=== PATIENT | female | born 1960 | race Two or more races ===

== ENCOUNTER 2021-02-04 21:56 | Inpatient (IN) | payer MEDICAID, OTHER ==
[~2021-02-04] VITALS: Ht 152.4 cm; Wt 103.9 kg
[2021-02-04] MEDS ORDERED: LORazepam 2MG/ML-1ML VIAL IV ONE (22:15)
[2021-02-04] MEDS ORDERED: NIFEdipine 10 MG CAP PO ONE (22:15)
[2021-02-04 23:22] LABS: Basophils # (auto) 0 10 ^3/uL (0-0.2); Basophils % (auto) 0.8 % (0.0-2.0); Eosinophils # (auto) 0.2 10 ^3/uL (0-0.8); Eosinophils % (auto) 2.7 % (0.0-7.0); Hematocrit 40.5 % (36.0-46.0); Hemoglobin 13.1 g/dL (12.2-16.2); Lymphocytes # (auto) 1.8 10 ^3/uL (0.4-5.4); Lymphocytes % (auto) 31.5 % (10.0-50.0); Mean Corpuscular Hemoglobin 27.7 pg (28.0-32.0); Mean Corpuscular Hgb Conc. 32.3 g/dL (32.0-36.0); Mean Corpuscular Volume 85.8 fL (80.0-100.0); Monocytes # (auto) 0.4 10 ^3/uL (0-1.3); Monocytes % (auto) 6.9 % (0.0-12.0); Neutrophils # (auto) 3.3 10 ^3/uL (1.6-8.6); Neutrophils % (auto) 58.1 % (37.0-80.0); Red Blood Cells 4.72 10^6/uL (4.0-5.20); Red Cell Distribution Width 14.4 % (11.8-14.3); White Blood Cell 5.8 10^3/uL (4.4-10.8)
[2021-02-04 23:22] LABS: Urine Bacteria NONE SEEN /hpf (None Seen); Urine Blood Negative /uL (Negative); Urine Specific Gravity 1.017 (1.001-1.035); Urine WBC 1 /hpf (0 - 5)
[2021-02-04 23:40] LABS: INR 0.98 (0.9-1.15); Partial Thromboplastin Time 28.6 sec (23.6-33.0)
[2021-02-04 23:42] LABS: Albumin 3.4 g/dL (3.4-5.0); Anion Gap 3 (5-15); Blood Urea Nitrogen 19 mg/dL (7-18); Calcium 8.8 mg/dL (8.5-10.1); Carbon Dioxide 27 mmol/L (21-32); Chloride 110 mmol/L (98-107); Glucose 202 mg/dL (74-106); Magnesium 2.5 mg/dL (1.6-2.6); Potassium 3.6 mmol/L (3.5-5.1); Sodium 140 mmol/L (136-145)
[2021-02-04 23:47] LABS: Alanine Aminotransferase 35 U/L (13-56); Alkaline Phosphatase 86 U/L (45-117); Aspartate Aminotransferase 16 U/L (15-37); BUN/Creatinine Ratio 26.4; Bilirubin, Total 0.2 mg/dL (0.2-1.0); Blood Alcohol < 3.0 mg/dL (0-5); GFR African American 107 mL/min; GFR Non-African American 88 mL/min; Total Protein 7.2 g/dL (6.4-8.2)
[2021-02-05] MEDS ORDERED: ATORVASTATIN 20 MG TAB PO ONE (03:45)
[2021-02-05] MEDS ORDERED: ASPirin-EC 325mg tab PO ONE (03:45)
[2021-02-05] MEDS ORDERED: DEXTROSE (50%) 50ML SYRG IV PRN (04:00)
[2021-02-05] MEDS ORDERED: ONDANSETRON HCL 4 MG/2 ML VIAL IV PRN (04:00)
[2021-02-05] MEDS: ACCU-CHEK COMFORT CURVE STRIP VI SCH ×4 (07:27→22:00)
[2021-02-05] MEDS: InsuLIN REG 1unit/0.01ml Soln (100units/ml) SC SCH ×4 (07:33→22:00)
[2021-02-05] MEDS: ACETAMINOPHEN 325 MG TAB PO PRN (08:37)
[2021-02-05] MEDS: ASPirin 81 mg TAB PO SCH (10:25)
[2021-02-05] MEDS: PANTOPRAZOLE 40 MG TAB PO SCH (10:26)
[2021-02-05] MEDS: amLODIPine BESYLATE 5 MG TAB PO SCH (10:26)
[2021-02-05] MEDS: ENOXAPARIN SOD 40 MG/0.4 ML SYRINGE SC SCH (10:27)
[2021-02-05] MEDS ORDERED: BENA10TA14 PO (10:41)
[2021-02-05] MEDS ORDERED: METF-372 PO (10:41)
[2021-02-05] MEDS ORDERED: INS7030I SC ×2 (10:41)
[2021-02-05] MEDS ORDERED: ASPI1TAB20 PO (10:41)
[2021-02-05 11:00] VITALS: BP 137/74
[2021-02-05 12:17] LABS: Cholesterol 164 mg/dL (< 200); HDL Cholesterol 49 mg/dL (40-59); LDL Cholesterol 103 mg/dL (< 100); Triglycerides 84 mg/dL (< 150)
[2021-02-05 13:03] VITALS: BP 137/74
[2021-02-05] MEDS: HYDROcodone-ACET 5/325MG TAB PO PRN ×2 (15:40→21:44)
[2021-02-05 17:03] VITALS: BP 144/79
[2021-02-05 20:00] VITALS: BP 104/45
[2021-02-05 21:41] VITALS: BP 100/73
[2021-02-05] MEDS: ATORVASTATIN 20 MG TAB PO SCH (21:44)
[2021-02-06 05:00] VITALS: BP 143/71
[2021-02-06 06:07] LABS: Basophils # (auto) 0 10 ^3/uL (0-0.2); Basophils % (auto) 0.8 % (0.0-2.0); Eosinophils # (auto) 0.2 10 ^3/uL (0-0.8); Eosinophils % (auto) 3.2 % (0.0-7.0); Hematocrit 38.7 % (36.0-46.0); Lymphocytes # (auto) 1.9 10 ^3/uL (0.4-5.4); Lymphocytes % (auto) 33.6 % (10.0-50.0); Mean Corpuscular Hemoglobin 28.8 pg (28.0-32.0); Mean Corpuscular Hgb Conc. 33.7 g/dL (32.0-36.0); Mean Corpuscular Volume 85.6 fL (80.0-100.0); Monocytes # (auto) 0.4 10 ^3/uL (0-1.3); Monocytes % (auto) 6.5 % (0.0-12.0); Neutrophils # (auto) 3.2 10 ^3/uL (1.6-8.6); Neutrophils % (auto) 55.9 % (37.0-80.0); Nucleated Red Blood Cells % 0.1 %; Red Blood Cells 4.51 10^6/uL (4.0-5.20); Red Cell Distribution Width 14.5 % (11.8-14.3); White Blood Cell 5.7 10^3/uL (4.4-10.8)
[2021-02-06 06:20] LABS: Calcium 8.6 mg/dL (8.5-10.1); Potassium 3.7 mmol/L (3.5-5.1)
[2021-02-06 06:22] LABS: BUN/Creatinine Ratio 23.2
[2021-02-06] MEDS: InsuLIN REG 1unit/0.01ml Soln (100units/ml) SC SCH ×4 (07:00→22:16)
[2021-02-06] MEDS: ACCU-CHEK COMFORT CURVE STRIP VI SCH ×4 (07:11→22:17)
[2021-02-06 08:15] VITALS: BP 141/59
[2021-02-06 09:06] VITALS: BP 141/59
[2021-02-06] MEDS: ASPirin 81 mg TAB PO SCH (10:07)
[2021-02-06] MEDS: amLODIPine BESYLATE 5 MG TAB PO SCH (10:07)
[2021-02-06] MEDS: PANTOPRAZOLE 40 MG TAB PO SCH (10:07)
[2021-02-06] MEDS: HYDROcodone-ACET 5/325MG TAB PO PRN (10:09)
[2021-02-06] MEDS: ENOXAPARIN SOD 40 MG/0.4 ML SYRINGE SC SCH (10:09)
[2021-02-06] MEDS: CLINDAMYCIN 300MG IV 50 ML IV SCH ×3 (11:24→22:14)
[2021-02-06] MEDS: ACETAMINOPHEN 325 MG TAB PO PRN (13:24)
[2021-02-06 13:28] VITALS: BP 151/72
[2021-02-06 17:00] VITALS: BP 152/75
[2021-02-06 22:00] VITALS: BP 105/54
[2021-02-06] MEDS: ATORVASTATIN 20 MG TAB PO SCH (22:13)
[2021-02-07] MEDS: TEMAZEPAM 15 MG CAP PO PRN (02:00)
[2021-02-07 05:00] VITALS: BP 147/66
[2021-02-07] MEDS: CLINDAMYCIN 300MG IV 50 ML IV SCH ×3 (06:01→22:27)
[2021-02-07] MEDS: ACCU-CHEK COMFORT CURVE STRIP VI SCH ×4 (06:27→22:27)
[2021-02-07] MEDS: InsuLIN REG 1unit/0.01ml Soln (100units/ml) SC SCH ×4 (06:27→22:29)
[2021-02-07] MEDS: PANTOPRAZOLE 40 MG TAB PO SCH (08:55)
[2021-02-07] MEDS: ENOXAPARIN SOD 40 MG/0.4 ML SYRINGE SC SCH (08:55)
[2021-02-07] MEDS: ASPirin 81 mg TAB PO SCH (08:55)
[2021-02-07] MEDS: amLODIPine BESYLATE 5 MG TAB PO SCH (08:55)
[2021-02-07] MEDS: ACETAMINOPHEN 325 MG TAB PO PRN (08:56)
[2021-02-07 09:00] VITALS: BP_SYST 110; BP_SYST 160; BP_DIAS 80
[2021-02-07] MEDS: cloNIDine HCL 0.1 MG TAB PO PRN (12:04)
[2021-02-07 16:49] VITALS: BP 130/67
[2021-02-07] MEDS: HYDROcodone-ACET 5/325MG TAB PO PRN (17:21)
[2021-02-07 22:00] VITALS: BP 157/70
[2021-02-07] MEDS: ATORVASTATIN 20 MG TAB PO SCH (22:26)
[2021-02-08] MEDS: TEMAZEPAM 15 MG CAP PO PRN (01:23)
[2021-02-08 05:00] VITALS: BP 135/79
[2021-02-08] MEDS: CLINDAMYCIN 300MG IV 50 ML IV SCH ×2 (06:01→14:00)
[2021-02-08] MEDS: ACCU-CHEK COMFORT CURVE STRIP VI SCH ×2 (06:26→12:03)
[2021-02-08] MEDS: InsuLIN REG 1unit/0.01ml Soln (100units/ml) SC SCH ×2 (06:31→12:06)
[2021-02-08] MEDS: amLODIPine BESYLATE 5 MG TAB PO SCH (10:38)
[2021-02-08] MEDS: ASPirin 81 mg TAB PO SCH (10:38)
[2021-02-08] MEDS: cloNIDine HCL 0.1 MG TAB PO PRN (10:39)
[2021-02-08] MEDS: PANTOPRAZOLE 40 MG TAB PO SCH (10:39)
[2021-02-08] MEDS: ENOXAPARIN SOD 40 MG/0.4 ML SYRINGE SC SCH (10:39)
[2021-02-08 12:46] VITALS: BP 139/70
[2021-02-08] MEDS: ACETAMINOPHEN 325 MG TAB PO PRN (13:01)
== END 2021-02-08 13:55 | disposition home or self-care (01) | DRG 47 ==
LOC: EDBD 21:56 → ER 22:00 → OVERFLOW 02-05 03:48 → WEST WING 02-05 08:15
PROVIDERS: ADMIT Nurse Practitioner; ATTEND Family Medicine
DX: G45.9 Transient cerebral ischemic attack, unspecified (principal); I63.9 Cerebral infarction, unspecified; L03.116 Cellulitis of left lower limb; E11.9 Type 2 diabetes mellitus without complications; I10 Essential (primary) hypertension; E66.01 Morbid (severe) obesity due to excess calories; Z20.822 Contact with and (suspected) exposure to COVID-19; E78.5 Hyperlipidemia, unspecified; F17.200 Nicotine dependence, unspecified, uncomplicated; Z79.82 Long term (current) use of aspirin; Z86.73 Personal history of transient ischemic attack (TIA), and cerebral infarction without residual deficits; Z80.1 Family history of malignant neoplasm of trachea, bronchus and lung; Z82.3 Family history of stroke; Z82.49 Family history of ischemic heart disease and other diseases of the circulatory system; Z83.3 Family history of diabetes mellitus; Z68.41 Body mass index [BMI] 40.0-44.9, adult
CPT/HCPCS: 36415; 70450; 70551; 71045; 73700; 80048; 80053; 80061; 80320; 81001; 82962; 83735; 84484; 85025; 85610; 85730; 87426; 93005; 93306; 93886; 96374; G0378; J1815; J3490

== ENCOUNTER 2021-02-17 14:38 | Emergency (ER) | payer MEDICAID ==
[~2021-02-17] VITALS: Ht 149.9 cm; Wt 106.6 kg
[~2021-02-17 14:38] MED LIST: ASPI1TAB20 PO; BENA10TA14 PO; INS7030I SC; METF-372 PO
[2021-02-17 16:00] LABS: Basophils # (auto) 0 10 ^3/uL (0-0.2); Basophils % (auto) 0.7 % (0.0-2.0); Eosinophils # (auto) 0.2 10 ^3/uL (0-0.8); Eosinophils % (auto) 2.9 % (0.0-7.0); Hematocrit 39.3 % (36.0-46.0); Hemoglobin 13.2 g/dL (12.2-16.2); Lymphocytes # (auto) 1.8 10 ^3/uL (0.4-5.4); Lymphocytes % (auto) 27.6 % (10.0-50.0); Mean Corpuscular Hemoglobin 28.3 pg (28.0-32.0); Mean Corpuscular Hgb Conc. 33.4 g/dL (32.0-36.0); Mean Corpuscular Volume 84.6 fL (80.0-100.0); Monocytes # (auto) 0.4 10 ^3/uL (0-1.3); Monocytes % (auto) 6.6 % (0.0-12.0); Neutrophils % (auto) 62.2 % (37.0-80.0); Red Blood Cells 4.65 10^6/uL (4.0-5.20); Red Cell Distribution Width 14.1 % (11.8-14.3); White Blood Cell 6.5 10^3/uL (4.4-10.8)
[2021-02-17 16:17] LABS: Albumin 3.3 g/dL (3.4-5.0); Calcium 8.6 mg/dL (8.5-10.1); Potassium 3.4 mmol/L (3.5-5.1)
[2021-02-17 16:22] LABS: Bilirubin, Total 0.3 mg/dL (0.2-1.0)
[2021-02-17 22:18] VITALS: BP 157/72
== END 2021-02-17 22:24 | disposition home or self-care (01) ==
LOC: ER 14:38
DX: I10 Essential (primary) hypertension (principal); R51.9 Headache, unspecified; E11.9 Type 2 diabetes mellitus without complications; Z86.73 Personal history of transient ischemic attack (TIA), and cerebral infarction without residual deficits; Z79.4 Long term (current) use of insulin; Z79.82 Long term (current) use of aspirin; Z79.899 Other long term (current) drug therapy
CPT/HCPCS: 36415; 70450; 80053; 84484; 85025; 93005; 99285; J7030

== ENCOUNTER 2021-04-16 18:15 | Emergency (ER) | payer MEDICAID ==
[~2021-04-16] VITALS: Ht 149.9 cm; Wt 104.3 kg
[2021-04-16 23:22] LABS: Basophils # (auto) 0.1 10 ^3/uL (0-0.2); Basophils % (auto) 0.9 % (0.0-2.0); Eosinophils # (auto) 0.2 10 ^3/uL (0-0.8); Eosinophils % (auto) 2.5 % (0.0-7.0); Hematocrit 37.7 % (36.0-46.0); Hemoglobin 12.9 g/dL (12.2-16.2); Lymphocytes # (auto) 1.7 10 ^3/uL (0.4-5.4); Lymphocytes % (auto) 24.3 % (10.0-50.0); Mean Corpuscular Hemoglobin 28.8 pg (28.0-32.0); Mean Corpuscular Hgb Conc. 34.1 g/dL (32.0-36.0); Mean Corpuscular Volume 84.3 fL (80.0-100.0); Monocytes # (auto) 0.4 10 ^3/uL (0-1.3); Monocytes % (auto) 5.8 % (0.0-12.0); Neutrophils # (auto) 4.6 10 ^3/uL (1.6-8.6); Neutrophils % (auto) 66.5 % (37.0-80.0); Nucleated Red Blood Cells % 0.1 %; Red Blood Cells 4.47 10^6/uL (4.0-5.20); White Blood Cell 6.9 10^3/uL (4.4-10.8)
[2021-04-16 23:40] LABS: Calcium 8.8 mg/dL (8.5-10.1); Potassium 3.5 mmol/L (3.5-5.1)
[2021-04-16 23:42] LABS: INR 0.97 (0.9-1.15); Partial Thromboplastin Time 26.6 sec (23.6-33.0)
[2021-04-16 23:48] LABS: Albumin 3.5 g/dL (3.4-5.0); BUN/Creatinine Ratio 22.9; Bilirubin, Total 0.2 mg/dL (0.2-1.0); Magnesium 2.1 mg/dL (1.6-2.6); Total Protein 7.3 g/dL (6.4-8.2)
[2021-04-17 01:58] VITALS: BP 177/81
== END 2021-04-17 02:05 | disposition home or self-care (01) ==
LOC: ER 18:15
DX: R20.2 Paresthesia of skin (principal); I10 Essential (primary) hypertension; E11.9 Type 2 diabetes mellitus without complications; E78.5 Hyperlipidemia, unspecified; Z86.73 Personal history of transient ischemic attack (TIA), and cerebral infarction without residual deficits
CPT/HCPCS: 36415; 70450; 71045; 80053; 83735; 84484; 85025; 85610; 85730; 93005

== ENCOUNTER 2022-08-10 15:44 | Emergency (ER) | payer MEDICAID ==
[~2022-08-10] VITALS: Ht 157.5 cm; Wt 104.0 kg
[2022-08-10] MEDS ORDERED: MORPHINE SULFATE 4 MG/ML SYR/VIAL IV ONE (16:15)
[2022-08-10] MEDS ORDERED: ONDANSETRON HCL 4 MG/2 ML VIAL IV ONE (16:15)
[2022-08-10 16:36] LABS: Basophils # (auto) 0.1 10 ^3/uL (0-0.2); Basophils % (auto) 0.7 % (0.0-2.0); Eosinophils # (auto) 0 10 ^3/uL (0-0.8); Eosinophils % (auto) 0.4 % (0.0-7.0); Hematocrit 41.5 % (36.0-46.0); Hemoglobin 13.8 g/dL (12.2-16.2); Lymphocytes % (auto) 9.5 % (10.0-50.0); Mean Corpuscular Hemoglobin 28.4 pg (28.0-32.0); Mean Corpuscular Hgb Conc. 33.3 g/dL (32.0-36.0); Mean Corpuscular Volume 85.4 fL (80.0-100.0); Monocytes # (auto) 0.4 10 ^3/uL (0-1.3); Monocytes % (auto) 4.2 % (0.0-12.0); Neutrophils # (auto) 9.2 10 ^3/uL (1.6-8.6); Neutrophils % (auto) 85.2 % (37.0-80.0); Red Blood Cells 4.86 10^6/uL (4.0-5.20); Red Cell Distribution Width 14.6 % (11.8-14.3); White Blood Cell 10.8 10^3/uL (4.4-10.8)
[2022-08-10 16:50] LABS: INR 0.94 (0.9-1.15); Partial Thromboplastin Time 24.9 sec (24.6-33.4)
[2022-08-10 16:56] LABS: Albumin 3.5 g/dL (3.4-5.0); BUN/Creatinine Ratio 26.8 (10.0-20.0); Calcium 9.4 mg/dL (8.5-10.1); Potassium 3.7 mmol/L (3.5-5.1)
[2022-08-10 16:58] LABS: Bilirubin, Total 0.3 mg/dL (0.2-1.0); Total Protein 7.2 g/dL (6.4-8.2)
[2022-08-10] MEDS ORDERED: ETOMIDATE (2MG/ML) 20ML VIAL IV ONE (17:00)
[2022-08-10 18:21] VITALS: BP 194/96
[2022-08-10] MEDS ORDERED: TRAM50TA2 PO (18:54)
[2022-08-10] MEDS ORDERED: traMADol HCL 50 MG TAB PO ONE (19:00)
== END 2022-08-10 19:26 | disposition home or self-care (01) ==
LOC: ER 15:44 → EDBD 15:44 → ER 19:26
DX: S43.005A Unspecified dislocation of left shoulder joint, initial encounter (principal); S00.81XA Abrasion of other part of head, initial encounter; E11.9 Type 2 diabetes mellitus without complications; E78.5 Hyperlipidemia, unspecified; I10 Essential (primary) hypertension; W18.09XA Striking against other object with subsequent fall, initial encounter; Y93.89 Activity, other specified; Y92.89 Other specified places as the place of occurrence of the external cause; Y99.8 Other external cause status
CPT/HCPCS: 23650; 36415; 70450; 73020; 73030; 73060; 80053; 85025; 85610; 85730; 96374; 96375; 99285; J2270; J2405